=== PATIENT | female | born 1975 | race Caucasian/White ===

== ENCOUNTER 2017-07-30 21:00 | Inpatient (IN) ==
[2017-07-30] MEDS ORDERED: CARBOPROST 250 MCG/ML INJECTION IM PRN (21:06)
[2017-07-30] MEDS ORDERED: ACETAMINOPHEN 500 MG TABLET PO PRN ×2 (21:06→22:39)
[2017-07-30] MEDS ORDERED: MAG-AL + SIM ORAL LIQUID 30ml PO PRN ×2 (21:06→22:39)
[2017-07-30] MEDS ORDERED: LR 1,000 ML IV PRN (21:06)
[2017-07-30] MEDS ORDERED: CALCIUM CARBONATE Chewable 500mg TABLET PO PRN ×2 (21:06→22:39)
[2017-07-30] MEDS ORDERED: METHYLERGONOVINE 0.2 MG/ML INJECTION IM PRN (21:06)
[2017-07-30] MEDS ORDERED: LIDOCAINE 1% (10mg/ml) 2mL INJ PF SDV ID PRN (21:06)
--- OUTSIDE RECORDS SUMMARY | 2017-07-30 21:30 | External Medical Summary | Continuity of Care Document ---
:1975 Author Organization [facility] Address [address] [place], [place] [id number] Phone Care Team Providers Name Role Phone Vandana Cannon DO Unavailable Unavailable Allergies, Adverse Reactions, Alerts Substance Reaction Severity Status No Known Drug Allergies Unknown Active Medications Medication Instructions Dosage Effective Dates Status Comments (start - stop) iron 325 mg (65 mg take 1 tablet by 325 MG - Active iron) tablet ORAL route every day Vitamin take 1 tablet by Not Available - Active tablet oral route every day Problems Condition Effective Dates (start - stop) Clinical Status Supervision of elderly multigravida, - third trimester 30 weeks gestation of - Supervision of elderly multigravida, - third trimester 28 weeks gestation of - Supervision of elderly multigravida, - second trimester 23 weeks gestation of - Supervision of elderly multigravida, - second trimester 20 weeks gestation of - Supervision of elderly multigravida, - second trimester Encntr screen for infections w sexl - mode of transmiss Encounter for screening for oth - infec/parastc diseases Encounter for screening of - mother 14 weeks gestation of - Supervision of elderly multigravida, - second trimester 16 weeks gestation of - Supervision of elderly multigravida, - second trimester 20 weeks gestation of - Supervision of elderly multigravida, - third trimester Velamentous insertion of umbilical - cord, third trimester 32 weeks gestation of - Vaginal Discharge - Active Procedures Procedure Date OB Visit No Charge Results Test Name Date and Time Measure Units Reference Range Abnormal Flag Comments Unknown Advance Directives Directive Yes / No Effective Date File Name Unknown Encounters Encounter Practice Location Reason(s) Diagnoses Date Provider Care Team Description For Visit Members Rizwana Poe Supervision of [place] Referring In Womens elderly 1-201 [place]. 700 Provider: billie Mishraavikadeem, 8 Medical [place] [address] third Center [place] R, 1522, trimesterVelament Partha Beasley, ous insertion of 120, Medical [place], umbilical cord, [facility] [id number], third [email or web address] [place], Partha 120, [place] weeks gestation [id number] Lui, tel: of , [place]. [place], tel: [phone]. [id number] tel:[phone] Rizwana Poe Supervision of [place] Referring In Womens elderly 8-201 [place]. 700 Provider: nancie Mishra, 8 Medical [place] [address] third [email or web address] Center [place] R, 1522, weeks gestation Partha Beasley, of 120, Medical [facility] [id number], [place], Partha 120, [place] [id number] Lui, tel: , [place]. [place], tel: [phone]. [id number] tel:[phone] Rizwana Poe Supervision of [place] Referring In Womens elderly 4-201 [place]. 700 Provider: nancie Mishra, 8 Medical [place] PO [address] third [email or web address] Center [place] R, 1522, weeks gestation Partha Beasley, of 120, Medical [facility] [id number], [place], Partha 120, [place] [id number] Lui, tel: , . [place], tel: [phone]. [id number] tel:[phone] Rizwana Poe Supervision of Dec-0 [place] Referring In Womens elderly 5-201 [place]. 700 Provider: Health MESFIN multigravida, 7 Medical [facility] Box second Center [place] R, 1522, [email or web address] weeks Partha Beasley, gestation of 120, Medical [place], Lui, [place] [id number], [place], Partha 120, [place] [id number] Lui, tel: , [place]. [place], tel: [phone]. [id number] tel:[phone] Rizwana Poe Supervision of Nov-0 [place] Referring In Womens elderly 8-201 [place]. 700 Provider: vicki Mishragravida, 7 Medical [facility] Box second Center [place] R, 1522, [email or web address] weeks Partha Beasley, gestation of 120, Medical [place], Poe, [place] [id number], [place], Partha 120, [place] [id number] Lui, tel: , [place]. [place] tel: [phone]. [id number] tel:[phone] Rizwana Poe Supervision of Nov-0 [place] Referring In Womens Ultrasound elderly 8-201 [place]. 700 Provider: vicki Mishragravida, 7 Medical [facility] Box second Center [place] R, 1522, [email or web address] weeks Partha Beasley, gestation of 120, Medical [place], [facility] [id number], [place], Partha 120, [place] [id number] Lui, tel: , [place]. [place] tel: [phone]. [id number] tel:[phone] Rizwana Poe Supervision of Oct-1 [place] Referring In Womens elderly 7-201 [place]. 700 Provider: vicki Mishragravida, 7 [facility] Box second Center [place] R, 1522, [email or web address] weeks Partha Beasley, gestation of 120, Medical [place], [facility] [id number], [place], Partha 120, [place] [id number] Lui, tel: , [place]. [place] tel: [phone]. [id number] tel:[phone] Rizwana Poe Supervision of Sep-2 [place] Referring In Womens elderly 7-201 [place]. 700 Provider: Health MESFIN, multigravida, 7 Medical [place] PO Box [facility] Center [place] R, 1522, trimesterEncntr , [place] [address] Thierry, screen for 120, Medical [place], infections w sexl Lui, [place] [id number], mode of [place], Partha 120, [place] transmissEncounte [id number] Lui, tel: r for screening , [place]. [place], for oth tel: [phone]. infec/parastc [id number] tel: diseasesEncounter [phone] for screening of [id number] weeks gestation of [facility] May-0 [place] Referring In Womens 2-201 [facility] 700 Provider: Health MESFIN, 4 Medical [place] PO Box Center Kassandra B, 1522, , [facility] Lloyd [place], 120, Medical AMARILYS, Lui, Center [id number], [place], [address], [place] [id number] Lui, tel: , . [place], . tel: tel: [phone] Associates [facility] Mar-3 [place] In Womens 0-201 [place]. 700 Health MESFIN, 0 Medical PO Box Center [address], Dr [facility] Thierry, 120, KSLui, [id number], [place], [place] [id number] tel: , [place]. tel: [phone] Family History Family Member Diagnosis Age At Onset No family history of Osteoporosis No family history of Thyroid Disorder No family history of Ovarian Cancer No family history of Epilepsy No family history of Breast Cancer No family history of Colon Cancer No family history of Diabetes No family history of Hypertension Maternal Grandmother Myocardial Infarction No family history of Stroke Paternal Grandfather Cardiovascular Disease No family history of Kidney Problems Father Cancer, lung Immunizations Vaccine Date Status Comments Unknown Payers Payer name Insurance type Covered constitution party ID Authorization(s) KENNETH MCDONNELL [id number] Social History Type Description Quantity Date Captured Alcohol Use Details No Caffeine Use Details Unknown Tobacco Use Status Unknown Smoking Status Never smoker Vital Signs Date / Height Weight BMI Pulse Blood Temperature Respiratory Body Head BMI Time: Rate Pressure Rate Surface Circumference percentile Area 151.90 23.7 123/ lbs 9 mm[Hg] 9:17 kg/m AM eter (2) Chief Complaint And Reason For Visit Unknown Chief Complaint And Reason For Visit Reason For Referral Reason For Referral Unknown Plan Of Care Date Type Action Status Appointment Sharmaine Medrano BOOKED Future Order: Radiology Order OB Detailed Complete Ultrasound Ordered ([id number]) Date Type Problem Goal Intervention Status Start Date Unknown. History Of Present Illness Encounter Date Complaint History Of Present Illness This patient has no known history of present illness Functional Status Encounter Date Functional Assessment Cognitive Assessment Unknown Medications Administered Medication Instructions Dosage Effective Dates (start - stop) Status Comments Drug Treatment Unknown Instructions Date Instruction Additional Information Unknown
--- OUTSIDE RECORDS SUMMARY | 2017-07-30 21:31 | External Medical Summary | Continuity of Care Document ---
:1975 Author Organization [facility] Address [address] [place], [place] [address] Phone Care Team Providers Name Role Phone Vandana Cannon DO Unavailable Unavailable Allergies, Adverse Reactions, Alerts Substance Reaction Severity Status No Known Drug Allergies Unknown Active Medications Medication Instructions Dosage Effective Dates Status Comments (start - stop) Vitamin take 1 tablet by Not Available - Active tablet oral route every day Problems Condition Effective Dates (start - stop) Clinical Status Supervision of elderly multigravida, - second trimester 16 weeks gestation of - Supervision of elderly multigravida, - second trimester Encntr screen for infections w sexl - mode of transmiss Encounter for screening for oth - infec/parastc diseases Encounter for screening of - mother 14 weeks gestation of - Vaginal Discharge - Active Procedures Procedure Date OB Visit No Charge Results Test Name Date and Time Measure Units Reference Range Abnormal Flag Comments Unknown Advance Directives Directive Yes / No Effective Date File Name Unknown Encounters Encounter Practice Location Reason(s) Diagnoses Date Provider Care Team Description For Visit Members [facility] Supervision of [place] Referring In Women elderly 7-201 [place]. 700 Provider: vicki Mishragravikadeem, 7 Medical [place] PO [address] second [email or web address] Center [place] R, 1522, weeks gestation of Partha Beasley 700 Thierry, 120, Medical [facility] [id number], [place], [facility] 120, [id number] Lui, tel:[phone] , . [place], tel: [phone]. [id number] tel:[phone] Rizwana Poe Supervision of Sep-2 [place] Referring In Womens elderly 7-201 [place]. 700 Provider: Karley TOURE, multigravida, 7 [facility] Box [facility] Center [place] R, 1522, trimesterEncntr , [place] [address] Thierry, screen for 120, Medical [place], infections w sexl Lui Dequincy [id number], mode of [place], Partha 120, [place] transmissEncounter [id number] Lui, tel: for screening for , [place]. [place], oth infec/parastc tel: [phone]. diseasesEncounter [id number] tel: for [phone] screening of [id number] weeks gestation of Rizwana Poe Vinicio-0 [place] Referring In Womens 2-201 [place]. 700 Provider: Karley TOURE, 4 Medical [place] PO Box Center Kassandra Pedersen, 1522, , [place] [address] Thierry, 120, Medical Lui [address] [id number], [place], [address], [id number] Lui, tel: , [place]. [place], . tel: tel: [phone] Rizwana Poe Mar-3 [place] In Womens 0-201 [place]. 700 Karley TOURE, 0 Medical PO Box Center 1522, Partha Beasley, 120, Lui PANDA, [id number], [place], [place] [id number] tel: , . tel: [phone] Family History Family Member Diagnosis Age At [...] Unknown Payers Payer name Insurance type Covered democrat ID Authorization(s) KEYA MCDONNELL [id number] Social History Type Description Quantity Date Captured Alcohol Use Details No Caffeine Use Details Unknown Tobacco Use Status Unknown Smoking Status Never smoker Vital Signs Date / Height Weight BMI Pulse Blood Temperature Respiratory Body Head BMI Time: Rate Pressure Rate Surface Circumference percentile Area 135.40 21.2 112/64 lbs 0 mm[Hg] 10:35 kg/m AM eter (2) Chief Complaint And Reason For Visit Unknown Chief Complaint And Reason For Visit Reason For Referral Reason For Referral Unknown Plan Of Care Date Type Action Status Appointment Sharmaine Medrano BOOKED Appointment Sharmaine Medrano BOOKED Date Type Problem Goal Intervention Status Start [...]
--- OUTSIDE RECORDS SUMMARY | 2017-07-30 21:31 | External Medical Summary | Continuity of Care Document ---
:1975 Author Organization [facility] Address [address] [place], [place] [phone] Phone Care Team Providers Name Role Phone Armandaquiles Vandana MORENO Unavailable Unavailable Allergies, Adverse Reactions, Alerts Substance [...] insertion of umbilical - cord, third trimester Encounter For Screening For - Streptococcus B 36 weeks gestation of - Supervision of elderly [...] Supervision of elderly multigravida, - third trimester 34 weeks gestation of - Supervision of elderly multigravida, - third trimester Velamentous insertion of umbilical - cord, third trimester 32 weeks gestation of - Supervision of elderly multigravida, - third trimester Velamentous insertion of umbilical - cord, third trimester 36 weeks gestation of - Supervision of elderly multigravida, - third trimester Velamentous insertion of umbilical - cord, third trimester 37 weeks gestation of - Supervision of elderly multigravida, - third trimester 30 weeks gestation of - Supervision of elderly multigravida, - third trimester Velamentous insertion of umbilical - cord, third trimester 38 weeks gestation of - Vaginal Discharge - Active Procedures Procedure Date Immuniz admnin, 1 vac, sngl/combo 19 Yrs + TDAP VACCINE >7 IM OB Visit No Charge - SHEAR TENDER Cult, pathgnc orgnsm, screen Results Test Name Date and Time Measure Units Reference Range Abnormal Flag Comments Panel Description: STREPTOCOCCUS, GROUP B CULTURE STREPTOCOCCUS, GROUP SEE NOTE STREPTOCOCCUS, GROUP B CULTURE B CULTURE 11:03:00 MICRO NUMBER: [id number] TEST STATUS: FINAL SPECIMEN SOURCE: VAGINAL/ANORECTAL SPECIMEN QUALITY: ADEQUATE RESULT: No group B Streptococcus isolatedREPORT COMMENT:FASTING:UNKNOWNTest performed at [facility] [id number] AMARILYS SIMON [id number]: EDGAR MONTELONGO DO,MPH Advance Directives Directive Yes / No Effective Date File Name Unknown Encounters Encounter Practice Location Reason(s) Diagnoses Date Provider Care Team Description For Visit Members Rizwana Poe Supervision of Jul- [place] Referring In Womens elderly 5-201 [place]. 700 Provider: Karley TOURE, multigravida, 8 Medical [place] PO Box third Center Solit[place] R, 1522, trimesterVelwicho Beasley, Partha 700 [place], ous insertion of 120, Medical [place], umbilical cord, [address] [id number], third [email or web address] [place], Partha 120, [place] weeks gestation [id number] Lui, tel: of , [place]. [place], tel: [phone]. [id number] tel:[phone] Rizwana Poe Supervision of Jul-0 [place] Referring In Womens elderly 8- [place]. 700 Provider: Karley TOURE multigravida, 8 Medical [facility] Box third Center Solit[place] R, 1522, trimesterVelwicho Beasley, Partha 700 [place], ous insertion of 120, Medical [place], umbilical cord, [address] [id number], third [email or web address] [place], Partha 120, [place] weeks gestation [id number] Lui, tel: of , [place], tel:[phone]. [id number] tel:[phone] Rizwana Poe Supervision of Jun- Solitario Referring In Womens elderly [place]. 700 Provider: vicki Mishragravida, 8 Medical [facility] Box third Center Solit[place] R, 1522, trimesterHerminio Beasley, Partha 700 [place], ous insertion of 120, Medical [place], umbilical cord, [address] [id number], third [place], Partha 120, [place] trimesterEncounte [id number] Lui, tel: r For , [place]. [place], Screening For tel: [phone]. Streptococcus B36 [id number] tel: weeks gestation [phone] of Associates L[facility] Supervision of b-2 [place] Referring In Womens Ultrasound elderly 8 [place]. 700 Provider: vicki Mishragravida, 8 Medical [place] PO Box third Center Solit[place] R, 1522, trimesterHerminio Beasley, Partha 700 [place], ous insertion of 120, Medical [place], umbilical cord, Lui [place] [id number], third [place], Partha 120, [place] weeks gestation [id number] Lui, tel: of , [place]. [place], tel: [phone]. [id number] tel:[phone] Rizwana Poe Supervision of [place]it[place] Referring In Womens elderly 5-201 [place]. 700 Provider: Health PA, multigravida, 8 Medical [place] PO Box third [email or web address] Center [place] R, 1522, weeks gestation Partha Beasley, of 120, Medical [facility] [id number], [place], [place] 120, [place] [id number] Lui, tel: , [place]. [place], tel: [phone]. [id number] tel:[phone] Rizwana Poe Supervision of 0 [place] Referring In Womens elderly 1-201 [place]. 700 Provider: Health MESFIN, multigravida, 8 Medical [place] PO [address] third Center [place] R, [address], [address] Partha Lloyd [place], ous insertion of 120, Medical AMARILYS, [facility] cord, [facility] [id number], third [id number] [place], Partha 120, [place] weeks gestation [id number] Lui, tel: of , [place]. [place], tel: [phone]. [id number] tel:[phone] Rizwana Poe Supervision of [place]it[place] Referring In Womens elderly 8-201 [place]. 700 Provider: Health MESFIN, multigravida, 8 Medical [place] PO Box third [email or web address] Center [place] R, 1522, weeks gestation Partha Beasley, of 120, Medical [facility] [id number], [place], Partha 120, [place] [id number] Lui, tel: , [place]. [place], tel: [phone]. [id number] tel:[phone] Rizwana Poe Supervision of May-0 [place] Referring In Womens elderly 4-201 [place]. 700 Provider: Health PA, multigravida, 8 Medical [place] PO Box third Center [place] R, 1522, weeks gestation Partha Beasley, of 120, Medical [facility] [id number], [place], Partha 120, [place] [id number] Lui, tel: , [place]. [place] tel: [phone]. [id number] tel:[phone] Rizwana Poe Supervision of Dec-0 [place] Referring In Womens elderly 5-201 [place]. 700 Provider: vicki Mishragravikadeem, 7 Medical [facility] Box second Center [place] R, 1522, [email or web address] weeks Partha Beasley, gestation of 120, Medical [place], Lui, [place] [id number], [place], Partha 120, [place] [id number] Lui, tel: , [place]. [place], tel: [phone]. [id number] tel:[phone] Rizwana Poe Supervision of Nov-0 [place] Referring In Womens elderly 8- [place]. 700 Provider: vicki Mishragravikadeem, 7 Medical [facility] Box second Center [place] R, 1522, [id number] weeks Partha Beasley, gestation of 120, Medical [place], Lui, [place] [id number], [place], [place]tha 120, [place] [id number] Lui, tel: , [place]. [place] tel: [phone]. [id number] tel:[phone] Rizwana Poe Supervision of Nov-0 [place] Referring In Womens Ultrasound elderly 8- [place]. 700 Provider: billie Mishraavikadeem, 7 Medical [facility] Box second Center [place] R, 1522, [email or web address] weeks Partha Beasley, gestation of 120, Medical [place], [address] [id number], [place], Partha 120, [place] [id number] Lui, tel: , [place]. [place] tel: [phone]. [id number] tel:[phone] Rizwana Poe Supervision of Oct-1 [place] Referring In Womens elderly 7- [place]. 700 Provider: vicki Mishragravida, 7 Medical [facility] Box second Center [place] R, 1522, [email or web address] weeks Partha Beasley, gestation of 120, Medical [place], [address] Dr [id number], [place], Partha 120, [place] [id number] Lui, tel: , . [place], tel: [phone]. [id number] tel:[phone] Rizwana Poe Supervision of Sep-2 [place] Referring In Womens elderly 7-201 [place]. 700 Provider: Karley TOURE, multigravida, 7 [facility] Box [facility] Center Solitario R, 1522, trimesterEncntr , [place] [address] [place], screen for 120, Medical [place], infections w sexl Lui [place] [id number], mode of [place], Partha 120, [place] transmissEncounte [id number] Lui, tel: r for screening , [place]. [place], for oth tel: [phone]. infec/parastc [id number] tel: diseasesEncounter [phone] for screening of [email or web address] weeks gestation of Rizwana Poe Vinicio-0 [place] Referring In Womens 2-201 [place]. 700 Provider: Karley TOURE, 4 Medical [place] PO Box [place] Kassandra Pedersen 1522, , [place] [address] [place], 120, Medical AMARILYS, [address] Dr [id number], [place], [facility] 210, [id number] Lui, tel: , [place]. [place], . tel: tel: [phone] Rizwana Poe Mar-3 [place] In Womens 0-201 [place]. 700 Health MESFIN, 0 Medical PO Box Center 1522, Partha Beasley, 120, Lui PANDA, [id number], [place], [id number] tel: , . tel: [phone] Family History Family Member Diagnosis Age At [...] Cancer, lung Immunizations Vaccine Date Status Comments Tdap completed Source: New Immunization Record Payers Payer name Insurance type Covered alliance party ID Authorization(s) KENNETH MCDONNELL [id number] [facility] [id number] Social History Type Description Quantity Date Captured Alcohol Use Details No Caffeine Use Details Unknown Tobacco Use Status Unknown Smoking Status Never smoker Vital Signs Date / Height Weight BMI Pulse Blood Temperature Respiratory Body Head BMI Time: Rate Pressure Rate Surface Circumference percentile Area 158.80 24.8 / lbs 7 mm[Hg] 10:32 kg/m AM eter (2) Chief Complaint And Reason For Visit Unknown Chief Complaint And Reason For Visit Reason For Referral Reason For Referral Unknown Plan Of Care Date Type Action Status Appointment Sharmaine Medrano BOOKED Future Order: Radiology Order OB Detailed Complete Ultrasound Ordered ([id number]) Future Order: Radiology Order Ultrasound OB Follow-up ([id number]) Ordered Date Type Problem Goal Intervention Status Start [...]
--- OUTSIDE RECORDS SUMMARY | 2017-07-30 21:31 | External Medical Summary | Continuity of Care Document ---
:1975 Author Organization [facility] Address [address] [place], [place] [address] Phone Care Team Providers Name Role Phone Vandana Cannon DO Unavailable Unavailable Allergies, Adverse Reactions, Alerts Substance Reaction Severity Status No Known Drug Allergies Unknown Active Medications Medication Instructions Dosage Effective Dates Status Comments (start - stop) iron 325 mg (65 take 1 tablet by 325 MG - Active mg iron) tablet ORAL route every day Vitamin take 1 tablet by Not Available - Active tablet oral route every day Zithromax Z-Miguel take 2 tablet by 500 MG - No Longer 250 mg tablet oral route every Active day for 1 day then 1 tablet (250 mg) by oral route once daily for 4 days Problems Condition Effective Dates (start - stop) [...] third trimester 30 weeks gestation of - Vaginal Discharge - Active Procedures Procedure Date Unknown Results Test Name Date and Time Measure Units Reference Range Abnormal Flag Comments Unknown Advance Directives Directive Yes / No Effective Date File Name Unknown Encounters Encounter Practice Location Reason(s) Diagnoses Date Provider Care Team Description For Visit Members Rizwana Poe Supervision of Solit[place] Referring In Womens elderly 1-201 [place]. 700 Provider: nancie Mishra, 8 Medical [place] PO Box third Center Solitario R, 1522, trimesterVelament Partha Beasley ous insertion of 120, Medical [place], [facility] [id number], third [email or web address] [place], [facility] 120, [place] weeks gestation [id number] Lui, tel: of , [place]. [place], tel: [phone]. [id number] tel:[phone] Rizwana Poe Solitario In Womens 9-201 [place]. 700 Karley TOURE, 8 Medical PO [address] Center 1522, Partha Beasley, 120, Lui PAN[place] [id number], [place], [place] [id number] tel: , [place]. tel: [phone] Rizwana Poe Supervision of Solitario Referring In Womens elderly 8-201 [place]. 700 Provider: billie Mishraavikadeem, 8 Medical [place] PO Box third [email or web address] Center Solitario R, 1522, weeks gestation Partha Beasley, of 120, Medical Lui PANDA [place] [id number], [place], [facility] 120, [place] [id number] Lui, tel: , [place], tel: [phone]. [id number] tel:[phone] Rizwana Poe Supervision of Vinicio-0 [place] Referring In Womens elderly 4-201 [place]. 700 Provider: Health MESFIN, multigravida, 8 Medical [place] PO Box third [email or web address] Center Solitario R, 1522, weeks gestation Partha Beasley, of 120, Medical [place], Lui, [place] [id number], [place], Partha 120, [place] [id number] Lui, tel: , [place] tel: [phone]. [id number] tel:[phone] Rizwana Poe Supervision of Dec-0 [place] Referring In Womens elderly 5-201 [place]. 700 Provider: Health MESFIN multigravida, 7 Medical [place] PO Box second Center Solitario R, 1522, [email or web address] weeks Partha Beasley, gestation of 120, Medical [place], Lui, [place] [id number], [place], Partha 120, [place] [id number] Lui, tel: , [place] tel: [phone]. [id number] tel:[phone] Rizwana Poe Supervision of Nov-0 [place] Referring In Womens elderly 8-201 [place]. 700 Provider: vicki Mishragravikadeem, 7 Medical [place] PO Box second Center Solitario R, 1522, [email or web address] weeks Partha Beasley, gestation of 120, Medical [place], Lui, [place] [id number], [place], Partha 120, [place] [id number] Lui, tel: , [place] tel: [phone]. [id number] tel:[phone] Rizwana Poe Supervision of Nov-0 [place] Referring In Womens Ultrasound elderly 8-201 [place]. 700 Provider: vicki Mishragravida, 7 Medical [place] PO Box second Center Solitario R, 1522, [id number] weeks Partha Beasely, gestation of 120, Medical [place], Lui, [place] [id number], [place], Partha 120, [place] [id number] Lui, tel: , [place]. [place] tel: [phone]. [id number] tel:[phone] Rizwana Poe Supervision of Oct-1 [place] Referring In Womens elderly 7-201 [place]. 700 Provider: Health MESFIN, multigravida, 7 Medical [place] PO Box second Center Solitario R, 1522, [id number] weeks Partha Beasley, gestation of 120, Medical [place], Lui, [place] [id number], [place], Partha 120, [place] [id number] Lui, tel: , [place]. [place], tel: [phone]. [id number] tel:[phone] Rizwana Poe Supervision of Sep-2 Solit[place] Referring In Womens elderly 7-201 [place]. 700 Provider: Health MESFIN, multigravida, 7 Medical [place] PO Box second Center Solitario R, 1522, trimesterEncntr , [facility] Lloyd [place]ad[place], screen for 120, Medical [place], infections w sexl Lui, [place] [id number], mode of [place], Partha 120, [place] transmissEncounte [id number] Lui, tel: r for screening , [place]. [place], for oth tel: [phone]. infec/parastc [id number] tel: diseasesEncounter [phone] for screening of weeks gestation of Rizwana Poe Vinicio-0 [place] Referring In Womens 2-201 [place]. 700 Provider: Health MESFIN, 4 Medical [place] PO Box Center Kassandra B, 152Abimael, Partha Beasley, 120, [facility] [id number], [place], [facility] 210, [id number] Lui, tel: , [place]. [place], tel: tel: [phone] Rizwana Poe Mar-3 [place] In Womens 0-201 [place]. 700 Health [place], 0 Medical PO Box Center 152Abimael, Partha Beasley, 120, Lui PANDA [id number], [place], [place] [id number] tel: , . tel: [phone] Family History Family Member Diagnosis Age At [...] name Insurance type Covered democrat ID Authorization(s) KENNETH AMARILYS BL [id number] Social History Type Description Quantity Date Captured Unknown Vital Signs Date / Height Weight BMI Pulse Blood Temperature Respiratory Body Head BMI Time: Rate Pressure Rate Surface Circumference percentile Area Unknown Chief Complaint And Reason For Visit Unknown Chief Complaint And Reason For Visit Reason For Referral Reason For Referral Unknown Plan Of Care Date Type Action Status Appointment Sharmaine Medrano BOOKED Future Order: Radiology Order OB Detailed Complete Ultrasound Ordered ([id number]) Date Type Problem Goal Intervention Status Start [...]
--- OUTSIDE RECORDS SUMMARY | 2017-07-30 21:31 | External Medical Summary | Continuity of Care Document ---
:1975 Author Organization [facility] Address [address] [place], [place] [address] Phone Care Team Providers Name Role Phone Kassandra Vandana Unavailable Unavailable Allergies, Adverse Reactions, Alerts Substance [...] second trimester 16 weeks gestation of - Vaginal Discharge - Active Procedures Procedure Date Detailed Compled OB Ultrasound, Single Fetus Results Test Name Date and Time Measure Units Reference Range Abnormal Flag Comments Unknown Advance Directives Directive Yes / No Effective Date File Name Unknown Encounters Encounter Practice Location Reason(s) Diagnoses Date Provider Care Team Description For Visit Members Associates [facility] Supervision of Solitario Referring In Womens elderly 8-201 [place]. 700 Provider: Health [place], multigravida, 7 Medical [place] PO Box second Center Solitario R, 1522, [email or web address] weeks , Partha [place], gestation of 120, Medical [place], [facility] [id number], [place], Partha 120, [place] [id number] Lui, tel: , [place]. [place], tel: [phone]. [phone] tel:[phone] Rizwana Poe Supervision of Nov-0 [place]it[place] Referring In Womens Ultrasound elderly 8-201 [place]. 700 Provider: Karley TOURE, multigravida, 7 Medical [place] PO Box second Center Solitario R, 1522, [email or web address] weeks Dr Partha lLoyd [place]ad[place], gestation of 120, Medical [place], [facility] [id number], [place], Partha 120, [place] [id number] Lui, tel: , [place]. [place], tel: [phone]. [id number] tel:[phone] Rizwana Poe Supervision of Feb- Solitario Referring In Womens elderly 7-201 [place]. 700 Provider: Karley TOURE, vickigravikadeem, 7 Medical [facility] Box second Center Solitario R, 1522, [id number] Partha Lloyd [place], gestation of 120, Medical [place], [facility] [id number], [place], Partha 120, [place] [id number] Lui, tel: , [place]. [place], tel: [phone]. [id number] tel:[phone] Rizwana Poe Supervision of Sep-2 [place] Referring In Womens elderly 7-201 [place]. 700 Provider: Karley TOURE, multigravida, 7 [facility] PO Box second Center Solitario R, 1522, trimesterEncntr Dr Partha Lloyd [place], screen for 120, Medical [place], infections w sexl Lui [place] [id number], mode of [place], Partha 120, [place] transmissEncounte [id number] Lui, tel: r for screening , [place]. [place] for oth tel: [phone]. infec/parastc [id number] tel: diseasesEncounter [phone] for screening of [id number] weeks gestation of Rizwana Poe Vinicio-0 Solit[place] Referring In Womens 2-201 [facility] 700 Provider: Health MESFIN, 4 Medical [place] PO Box Center Emma Lemus, Partha Beasley, [facility] [id number], [place], [facility] 210, [id number] Lui, tel: , [place]. [place], [phone]. [id number] tel: tel: [phone] Associates L[facility] Mar-3 [place]it[place] In Womens 0-201 [place] [address] Health [place], 0 Medical PO Box Center 1522, Partha Beasley, 120, Lui PAN[place] [id number], [place], [place] [id number] tel: , . tel: [phone] Family History Family Member Diagnosis Age At [...] Insurance type Covered constitution party ID Authorization(s) [facility] [id number] Social History Type Description Quantity Date Captured [...] Radiology Order OB Detailed Complete Ultrasound Ordered ([id number]) Date Type Problem Goal Intervention Status Start [...]
--- OUTSIDE RECORDS SUMMARY | 2017-07-30 21:31 | External Medical Summary | Continuity of Care Document ---
:1975 Author Organization [facility] Address [address] [place], [place] [address] Phone Care Team Providers Name Role Phone Vandana aCnnon DO Unavailable Unavailable Allergies, Adverse Reactions, Alerts [...] second trimester 20 weeks gestation of - Vaginal Discharge - Active Procedures Procedure Date OB Visit No Charge Results Test Name Date and Time Measure Units Reference Range Abnormal Flag Comments Unknown Advance Directives Directive Yes / No Effective Date File Name Unknown Encounters Encounter Practice Location Reason(s) Diagnoses Date Provider Care Team Description For Visit Members Rizwana Poe Supervision of [place] Referring [place] [facility]-201 [place]. 700 Provider: nancie Mishra, 7 [facility] second Center Solit[place] R, 1522, [id number] weeks , Partha 700 [place], gestation of 120, Medical [place], [facility] [id number], [place], Partha 120, [place] [id number] Lui, tel: , [place]. [place], tel: [phone]. [id number] tel:[phone] Rizwana Poe Supervision of Nov0 Solitario Referring In Womens Ultrasound elderly 8-201 [place]. 700 Provider: Karley TOURE, multigravida, 7 [facility] second Center Solit[place] R, 1522, [id number] weeks , Partha 700 [place], gestation of 120, Medical [place], [facility] [id number], [place], Partha 120, [place] [id number] Lui, tel: , [place]. [place], tel: [phone]. [id number] tel:[phone] Rizwana Poe Supervision of Solitario Referring In Womens elderly 7-201 [place]. 700 Provider: Karley TOURE, multigravida, 7 [facility] Solitario R, 1522, [id number] weeks , Partha 700 [place], gestation of 120, Medical [place], [facility] [id number], [place], Partha 120, [place] [id number] Lui, tel: , [place]. [place], tel: [phone]. [id number] tel:[phone] Rizwana Poe Supervision of Sep-2 Solitario Referring In Womens elderly 7-201 [place]. 700 Provider: Karley TOURE, multigravida, 7 [facility] second Center Solitario R, 1522, trimesterEncntr , Partha 700 [place], screen for 120, Medical [place], infections w sexl Lui [place] [id number], mode of [place], Partha 120, [place] transmissEncounte [id number] Lui, tel: r for screening , [place]. [place] for oth tel: [phone]. infec/parastc [id number] tel: diseasesEncounter [phone] for screening of [id number] weeks gestation of Rizwana Poe Vinicio-0 Solitario Referring In Womens 2-201 [place]. 700 Provider: Health MESFIN, 4 Medical [place] PO Box Center Emma Lemus, Partha Beasley, 120, [facility] [place] [id number], [place], [address], [place] [id number] Lui, tel: , [place]. [place], [address]. [id number] tel: tel: [phone] Associates [facility] Mar-3 Solit[place] In Womens 0-201 [place] [address] Health [place], 0 Medical PO Box Center 1522, Partha Beasley, 120, Lui PANDA, [id number], [place], [place] [id number] tel: , . tel: [phone] Family History Family Member Diagnosis Age At [...] Unknown Payers Payer name Insurance type Covered alliance party ID Authorization(s) [facility] [id number] Social History Type Description Quantity Date Captured Alcohol Use Details No Caffeine Use Details Unknown Tobacco Use Status Unknown Smoking Status Never smoker Vital Signs Date / Height Weight BMI Pulse Blood Temperature Respiratory Body Head BMI Time: Rate Pressure Rate Surface Circumference percentile Area 140.70 22.0 124/ lbs 3 mm[Hg] 1:30 kg/m PM eter (2) Chief Complaint And Reason For Visit Unknown Chief Complaint And Reason For Visit Reason For Referral Reason For Referral Unknown Plan Of Care Date Type Action Status Appointment Sharmaine Medrano BOOKED Future Order: Radiology Order OB Detailed Complete Ultrasound Ordered ([id number]) Date Type Problem Goal Intervention Status Start [...]
--- OUTSIDE RECORDS SUMMARY | 2017-07-30 21:31 | External Medical Summary | Continuity of Care Document ---
:1975 Author Organization [facility] Address [address] [place], [place] [id number] Phone Care Team Providers Name Role Phone [...] For Visit Members Rizwana Poe Supervision of Dec-0 Solit[place] Referring In Womens elderly 5-201 [place]. 700 Provider: Health MESFIN, multigravida, 7 Medical [place] PO Box second Center Solitario R, 1522, weeks Partha Beasley, gestation of 120, Medical [place], Lui, [place] [id number], [place], Partha 120, [place] [id number] Lui, tel: , [place]. [place] tel: [phone]. [id number] tel:[phone] Rizwana Poe Supervision of Nov-0 Solit[place] Referring In Womens elderly 8-201 [place]. 700 Provider: Karley TOURE, multigravida, 7 Medical [place] PO Box second Center Solitario R, 1522, weeks Partha Beasley, gestation of 120, Medical [place], Lui, [place] [id number], [place], Partha 120, [place] [id number] Lui, tel: , [place]. [place] tel: [phone]. [id number] tel:[phone] Rizwana Poe Supervision of Nov-0 Solit[place] Referring In Womens Ultrasound elderly 8- [place]. 700 Provider: vicki Mishragravikadeem, 7 Medical [place] PO Box second Center Solitario R, 1522, [id number] weeks Partha Beasley, gestation of 120, Medical [place], [facility] [id number], [place], Partha 120, [place] [id number] Lui, tel: , [place]. [place] tel: [phone]. [id number] tel:[phone] Rizwana Poe Supervision of Oct-1 Solit[place] Referring In Womens elderly 7- [place]. 700 Provider: Karley TOURE, multigravida, 7 [facility] PO Box second Center Solitario R, 1522, [id number] weeks Partha Beasley, gestation of 120, Medical [place], Lui, [place] [id number], [place], Partha 120, [place] [id number] Lui, tel: , [place]. [place] tel: [phone]. [id number] tel:[phone] Rizwana Poe Supervision of Sep-2 Solitario Referring In Womens elderly 7- [facility] 700 Provider: Health MESFIN, multigravida, 7 Medical [place] PO Box [facility] Solitario R, 1522, trimesterEncntr , [facility] Lloyd Guadarr[place], screen for 120, Medical [place], infections w sexl Lui, [place] [id number], mode of [place], Partha 120, [place] transmissEncounte [id number] Lui, tel: r for screening , [place]. [place], for oth tel: [phone]. infec/parastc [id number] tel: diseasesEncounter [phone] for screening of [id number] weeks gestation of Associates [facility] Vinicio-0 Solitario Referring In Womens 2-201 [place] [address] Provider: Karley TOURE, [address] Center Kassandra B, 1522, , [facility] Lloyd Guadarrama, 120, Medical AMARILYS, Lui, Josemanuel Beasley [id number], [place], [address], [id number] Lui, tel: , . [place], . tel: tel: [phone] Associates [facility] Mar-3 Solitario In Womens 0-201 [facility] 700 Karley TOURE, 0 Medical PO Box Center 1522, Partha Beasley, [facility], Lui PANDA, [id number], [place], [place] [id number] tel: , . tel: [phone] Family History Family Member Diagnosis Age At [...] Covered constitution party ID Authorization(s) KENNETH MCDONNELL [id number] Social History Type Description Quantity Date Captured Alcohol Use Details No Caffeine Use Details Unknown Tobacco Use Status Unknown Smoking Status Never smoker Vital Signs Date / Height Weight BMI Pulse Blood Temperature Respiratory Body Head BMI Time: Rate Pressure Rate Surface Circumference percentile Area Dec-05 145.20 22.7 109/58 2017 lbs 4 mm[Hg] 10:32 kg/m AM eter (2) Chief Complaint And Reason For Visit Unknown Chief Complaint And Reason For Visit Reason For Referral Reason For Referral Unknown Plan Of Care Date Type Action Status Appointment Sharmaine Medrano BOOKED Future Order: Radiology Order OB Detailed Complete Ultrasound Ordered ([id number]) Date Type Problem Goal Intervention Status Start [...]
--- OUTSIDE RECORDS SUMMARY | 2017-07-30 21:31 | External Medical Summary | Continuity of Care Document ---
:1975 Author Organization [facility] Address [address] [place], [place] [address] Phone Care Team Providers Name Role Phone aVndana Cannon DO Unavailable Unavailable Allergies, Adverse Reactions, [...] Rizwana Poe Supervision of Solitario Referring In [facility] 8-201 [place]. 700 Provider: nancie Mishra, 7 [facility] second Center Solitario R, 1522, [id number] weeks , Partha 700 [place], gestation of 120, Medical [place], [facility] [id number], [place], Partha 120, [place] [id number] Lui, tel: , [place]. [place], tel: [phone]. [id number] tel:[phone] Rizwana Poe Supervision of Nov0 Solitario Referring In Womens Ultrasound elderly 8-201 [place]. 700 Provider: Karley TOURE, multigravida, 7 [facility] second Center Solitario R, 1522, [id number] weeks , Partha 700 [place], gestation of 120, Medical [place], [facility] [id number], [place], Partha 120, [place] [id number] Lui, tel: , [place]. [place], tel: [phone]. [id number] tel:[phone] Rizwana Poe Supervision of Solitario Referring In Womens elderly 7-201 [place]. 700 Provider: Karley TOURE, multigravida, 7 [facility] Solitario R, 1522, [id number] weeks , Partha 700 [place], gestation of 120, Medical [place], [facility] [id number], [place], Partha 120, [place] [id number] Lui, tel: , [place]. [place], tel: [phone]. [id number] tel:[phone] Rizwana Poe Supervision of Sep-2 Solitario Referring In Womens elderly 7-201 [place]. 700 Provider: Karley TOURE, multigravida, 7 [facility] second Center Solitario R, 1522, trimesterEncntr , Partha 700 [place], screen for 120, Medical [place], infections w sexl Lui [place] [id number], mode of [place], Partha 120, [place] transmissEncounte [id number] Lui, tel: r for screening , [place]. [place] for oth tel: [phone]. infec/parastc [id number] tel: diseasesEncounter [phone] for screening of weeks gestation of Rizwana Poe Vinicio-0 Solitario Referring In Womens 2-201 [place]. 700 Provider: Health MESFIN, 4 Medical [place] [facility] PO Box Center Emma Lemus, Partha Beasley, 120, [facility] [place] [id number], [place], [address], [place] [id number] Lui, tel: , [place]. [place], [address]. [id number] tel: tel: [phone] Associates [facility] Mar-3 Solitario In Womens 0-201 [place] [address] Health [place], 0 Medical PO [address] Center [address], Partha Beasley, 120, Lui PANDA, [id number], [place], [place] [id number] tel: , . tel: [phone] Family History Family Member Diagnosis Age At [...] Insurance type Covered alliance party ID Authorization(s) [facility] [id number] Social History Type Description Quantity Date Captured [...] Radiology Order OB Detailed Complete Ultrasound Ordered ([id number]) Date Type Problem Goal Intervention Status Start [...]
--- OUTSIDE RECORDS SUMMARY | 2017-07-30 21:31 | External Medical Summary | Continuity of Care Document ---
:1975 Author Organization [facility] Address [address] [place], [place] [phone] Phone Care Team Providers Name Role Phone [...] Vaginal Discharge - Active Procedures Procedure Date Infct antign, chlamydia trac, ampl Neisseria Gonorrhoeae, Amplification Initial OB Visit No Charge - [employer] Urine Culture OB Panel With An HIV Venpnctr fngr/heel/ear stick routne Cult, bactr, ident isolate, urine Results Test Name Date and Time Measure Units Reference Range Abnormal Flag Comments Panel Description: OBSTETRIC PANEL WHITE BLOOD CELL 6.6 Thousand/uL 3.8-10.8 N COUNT 15:18:00 RED BLOOD CELL 3.76 Million/uL 3.80-5.10 L COUNT 15:18:00 HEMOGLOBIN 11.6 g/dL 11.7-15.5 L 15:18:00 HEMATOCRIT 33.8 % 35.0-45.0 L 15:18:00 MCV 89.9 fL 80.0-100.0 N 15:18:00 MCH 30.9 pg 27.0-33.0 N 15:18:00 MCHC 34.3 g/dL 32.0-36.0 N 15:18:00 RDW 13.1 % 11.0-15.0 N 15:18:00 PLATELET COUNT 180 Thousand/uL 140-400 N 15:18:00 MPV 10.8 fL 7.5-12.5 N 15:18:00 ABSOLUTE 5016 cells/uL 0581-0267 N NEUTROPHILS 15:18:00 ABSOLUTE 1109 cells/uL 850-3900 N LYMPHOCYTES 15:18:00 ABSOLUTE 376 cells/uL 200-950 N MONOCYTES 15:18:00 ABSOLUTE 59 cells/uL 15-500 N EOSINOPHILS 15:18:00 ABSOLUTE 40 cells/uL 0-200 N BASOPHILS 15:18:00 NEUTROPHILS 76 % N 15:18:00 LYMPHOCYTES 16.8 % N 15:18:00 MONOCYTES 5.7 % N 15:18:00 EOSINOPHILS 0.9 % N 15:18:00 BASOPHILS 0.6 % N 15:18:00 ANTIBODY SCREEN, NO ANTIBODIES N RBC W/REFL ID, 15:18:00 DETECTED Reference range TITER AND AG No antibodies detected This assay is a screening test for the detection of red blood cell antibodies. The test is not to be used for pretransfusion screening or for the medical management of an alloimmunized . ABO GROUP O 15:18:00 RH TYPE RH(D) 15:18:00 POSITIVE RPR (DX) W/REFL NON-REACTIVE NON-REACTIV N TITER AND 15:18:00 E CONFIRMATORY TESTING HEPATITIS B NON-REACTIVE NON-REACTIV N SURFACE ANTIGEN 15:18:00 E RUBELLA ANTIBODY 18.10 index N Index (IGG) 15:18:00 Interpretation ----- <0.90 Not consistent with Immunity 0.90-0.99 Equivocal > or=1.00 Consistent with Immunity The presence of rubella IgG antibody suggests immunization or past or current infection withrubella virus.Test performed at [facility] [id number] [facility] [place] [address]Wqkeowm r: EDGAR MONTELONGO DO,MPH Panel Description: HIV 1/2 ANTIGEN/ANTIBODY,FOURTH GENERATION W/RFL HIV NON-REACTIVE NON-REACTIVE N HIV-1 antigen and HIV-1/HIV- 2 antibodies were AG/AB, 15:18:00 notdetected. There is no laboratory evidence of 4TH GEN HIVinfection. PLEASE NOTE: This information has been disclosed toyou from records whose confidentiality may beprotected by state law. If your state requires suchprotection, then the state law prohibits you frommaking any further disclosure of the informationwithout the specific written consent of the personto whom it pertains, or as otherwise permitted by law.A general authorization for the release of medical orother information is NOT sufficient for this purpose. For additional information please refer tohttp://education.[employer]/faq/BZZ779(This link is being provided for informational/educational purposes only.) The performance of this assay has not been clinicallyvalidated in patients less than 2 years old. REPORT COMMENT:FASTING:NOTest performed at [facility] [id number] [facility] [place] [address]Uqctocwj: EDGAR MONTELONGO DO,MPH Panel Description: Bacteria identified in Urine by Culture CULTURE, URINE, 15:18:00 SEE NOTE CULTURE, URINE, ROUTINE ROUTINE MICRO NUMBER: [id number] TEST STATUS: FINAL SPECIMEN SOURCE: URINE, CLEAN CATCH SPECIMEN QUALITY: ADEQUATE RESULT: Multiple organisms present, each less than 10,000 CFU/mL. These organisms, commonly found on external and internal genitalia, are considered to be colonizers. No further testing performed.REPORT COMMENT:RFASTING:NOTest performed at [facility] [address] [address]Ocayzqrx: EDGAR MONTELONGO DO,MPH Panel Description: CHLAMYDIA/N. GONORRHOEAE RNA, TMA CHLAMYDIA NOT DETECTED NOT DETECTED N TRACHOMATIS RNA, 15:19:00 TMA NEISSERIA NOT DETECTED NOT DETECTED N GONORRHOEAE RNA, 15:19:00 TMA [id number] SEE NOTE This test was 15:19:00 performed using the [employer] COMBO2 Assay([employer] The analytical performance characteristics of this assay, when used to test SurePath specimens havebeen determined by [employer]. REPORT COMMENT:FASTING:UNKNO WNTest performed at [facility] [address] [address]Tqiakaqg: EDGAR MONTELONGO DO,MPH Panel Description: Pap Smear With HPV Reflex If ASCUS Document Pap Smear 14:15:00 See scanned report. Advance Directives Directive Yes / No Effective Date File Name Unknown Encounters Encounter Practice Location Reason(s) Diagnoses Date Provider Care Team Description For Visit Members Rizwana Poe Supervision of Solitario Referring In Women elderly [place]. 700 Provider: vicki Mishragravikadeem, 7 [facility] second [id number] Center Sol[place]ario [place], 1522, weeks gestation of Partha Beasley, 120, Medical Lui [address] [id number], [place], Partha 120, [place] [id number] Lui, tel: , [place]. AMARILYS, [id number] tel: [phone]. [id number] tel:[phone] Rizwana Poe Supervision of Solitario Referring In Women elderly [place]. 700 Provider: Karley TOURE multigravida, 7 [facility] Solitario [place], 1522, trimesterEncntr Partha Beasley, screen for 120, Medical [place], infections w sexl [address] Poe Dr [id number], mode of [place], Partha 120, [place] transmissEncounter [id number] Lui, tel: for screening for , . [place], oth infec/parastc tel: [phone]. diseasesEncounter [id number] tel: for [phone] screening of [id number] weeks gestation of Associates Lui Vinicio-0 Solitario Referring In Womens 2-201 [place]. 700 Provider: [facility], 4 Medical [place] PO Box Center Kassandra Pedersen, Cristal2, Par[place] Beasley, [facility], [facility] [place] [id number], [place], [facility] 210, [id number] Lui, tel: , [facility], [address]. tel: tel: [phone] Associates Lui Mar-3 Solitario In Womens 0-201 [facility] 700 Health [place], 0 Medical PO Box Center 1522, Par[place] Beasley, [facility], Lui PANDA [id number], [place], [id number] tel: , . tel: [phone] Family History Family Member Diagnosis Age At [...] Unknown Payers Payer name Insurance type Covered republican ID Authorization(s) [facility] AMARILYS [id number] Social History Type Description Quantity Date Captured Alcohol Use Details No Caffeine Use Details coffee 2 cups per day Tobacco Use Status Never smoked tobacco Smoking Status Never smoker Non-Smoking Tobacco Use : No Details Available : No Details Available Details Vital Signs Date / Height Weight BMI Pulse Blood Temperature Respiratory Body Head BMI Time: Rate Pressure Rate Surface Circumference percentile Area 131.80 20.6 106/64 -2017 lbs 4 mm[Hg] 3:14 kg/m PM eter (2) Chief Complaint And [...]
--- OUTSIDE RECORDS SUMMARY | 2017-07-30 21:31 | External Medical Summary | Continuity of Care Document ---
:1975 Author Organization [facility] Address [address] [place], [place] [address] Phone Care Team Providers Name Role Phone [...] For Visit Members Rizwana Poe Supervision of May-1 Solitario Referring In Womens elderly 8-201 [place]. 700 Provider: nancie Mishra, 8 Medical Erick PO Box third [id number] Center Solitario R, 1522, weeks gestation Partha Beasley, of 120, Medical [place] [facility] [id number], [place], Partha 120, [place] [id number] Lui, tel: , [place]. [place], tel: [phone]. [id number] tel:[phone] Rizwana Poe Viniico-0 Solitario In Womens 5-201 [place]. 700 Karley TOURE, 8 Medical [address] Center [address], [place] Beasley, 120, [place], Poe, [id number], [place], [place] [id number] tel: , [place]. tel: [phone] Rizwana Poe Supervision of Vinicio-0 Solitario Referring In Womens elderly 4-201 [place]. 700 Provider: nancie Mishra, 8 Medical Erick PO Box third [id number] Center Solitario R, 1522, weeks gestation [place] Beasley, of 120, Medical [facility] [id number], [place], Partha 120, [place] [id number] Lui, tel: , [place]. [place], tel: [phone]. [id number] tel:[phone] Rizwana Poe Supervision of Dec-0 Solitario Referring In Womens elderly 5-201 [place]. 700 Provider: nancie Mishra, 7 Medical Erick PO Box second Center Solitario R, 1522, [id number] weeks [place] Beasley, gestation of 120, Medical [place], [facility] [id number], [place], Partha 120, [place] [id number] Lui, tel: , [place]. [place], tel: [phone]. [id number] tel:[phone] Rizwana Poe Supervision of Nov-0 Solitario Referring In Womens elderly 8-201 [place]. 700 Provider: Karley TOURE, multigravida, 7 Medical [facility] Box second Center Solitario R, 1522, weeks [place] Beasley, gestation of 120, Medical [place], Lui, [place] [id number], [place], Partha 120, [place] [id number] Lui, tel: , [place]. [place], tel: [phone]. [id number] tel:[phone] Rizwana Poe Supervision of Nov-0 Solitario Referring In Womens Ultrasound elderly 8-201 [place]. 700 Provider: vicki Mishragravikadeem, 7 [facility] Box banner Center Solitario R, 1522, [id number] weeks [place] Beasley, gestation of 120, Medical [place], Lui, [place] [id number], [place], Partha 120, [place] [id number] Lui, tel: , [place]. [place] tel: [phone]. [id number] tel:[phone] Rizwana Poe Supervision of Oct-1 Solitario Referring In Womens elderly 7-201 [place]. 700 Provider: Karley TOURE, billieavikadeem, 7 [facility] Box banner Center Solitario R, 1522, [id number] weeks [place] Beasley, gestation of 120, Medical [place], Lui, [place] [id number], [place], Partha 120, [place] [id number] Lui, tel: , [place]. [place] tel: [phone]. [id number] tel:[phone] Rizwana Poe Supervision of Sep-2 Solitario Referring In Womens elderly 7-201 [place]. 700 Provider: Karley TOURE, vickigravida, 7 [facility] Solitario R, 1522, trimesterEncntr [place] Beasley, screen for 120, Medical [place], infections w sexl Lui, Josemanuel Beasley [id number], mode of [place], Partha 120, [place] transmissEncounte [id number] Lui, tel: r for screening , [place]. [place] for oth tel: [phone]. infec/parastc [id number] tel: diseasesEncounter [phone] for screening of [id number] weeks gestation of Associates Lui Vinicio-0 Solitario Referring In Womens 2-201 [place]. 700 Provider: Health MESFIN, 4 Medical Vandana PO Box Center Kassandra Pedersen, Emma, Partha Beasley, 120, [facility], [facility] [id number], [place], [address], [id number] Poe, tel: , . [place], [address]. [address] tel: tel: [phone] Associates Lui Mar-3 Solitario In Womens 0-201 [facility] 700 Health MESFIN, 0 Medical PO Box Center 1522, Partha Beasley, [facility], Lui PANDA [id number], [place], [place] [id number] tel: , . tel: [phone] Family History Family Member Diagnosis Age At [...] name Insurance type Covered republican ID Authorization(s) [facility] [place] [id number] Social History Type Description Quantity Date Captured Unknown Vital Signs Date / Height Weight BMI Pulse Blood Temperature Respiratory Body Head BMI Time: Rate Pressure Rate Surface Circumference percentile Area Unknown Chief Complaint And Reason For Visit Unknown Chief Complaint And Reason For Visit Reason For Referral Reason For Referral Unknown Plan Of Care Date Type Action Status Appointment Sharmaine Merdano BOOKED Future Order: Radiology Order OB Detailed Complete Ultrasound Ordered ([id number]) Date Type Problem Goal Intervention Status Start [...]
--- OUTSIDE RECORDS SUMMARY | 2017-07-30 21:31 | External Medical Summary | Continuity of Care Document ---
:1975 Author Organization [facility] Address [address] [place], [place] [phone] Phone Care Team Providers Name Role Phone [...] Procedures Procedure Date OB Visit No Charge Glucose test Hemoglobin count, colorimetric Hematocrit blood count Venpnctr fngr/heel/ear stick routne Results Test Name Date and Time Measure Units Reference Range Abnormal Flag Comments Panel Description: Glucose [Mass/volume] in Serum or Plasma --1 hour post 50 g glucose PO GLUCOSE, 118 mg/dL <140 N Test performed at [employer] GESTATIONAL SCREEN 11:10:00 DIAGNOSTICS [id number] ([id number] [place] [address]Cvdzhbea: EDGAR MONTELONGO DO,MPH Panel Description: HEMOGLOBIN + HEMATOCRIT HEMOGLOBIN 11:10:00 10.2 g/dL 11.7-15.5 L HEMATOCRIT 11:10:00 31.7 % 35.0-45.0 L REPORT COMMENT:FASTING :NOTest performed at [facility] [id number] [place] [address]Qgaodcqd: EDGAR MONTELONGO DO,MPH Advance Directives Directive Yes / No Effective Date File Name Unknown Encounters Encounter Practice Location Reason(s) Diagnoses Date Provider Care Team Description For Visit Members Rizwana Poe Supervision of Solitario Referring In Womens elderly 8-201 [place]. [facility] Provider: Health MESFIN multigravida, 8 Medical [facility] Box third [id number] Hollis Solitario [place], 1522, weeks gestation Partha Beasley, of 120, Medical L[facility] [id number], [place], [facility] 120, [place] [id number] Lui, tel: , . [place], [address] tel: [phone]. [id number] tel:[phone] Rizwana Poe Supervision of Solitario Referring In Womens elderly 4-201 [place]. [facility] Provider: Health MESFIN, multigravida, 8 Medical Erick PO Box third [email or web address] Center Solit[place], 1522, weeks gestation Partha Beasley, of 120, Medical L[facility] [id number], [place], Partha 120, [place] [id number] Lui, tel: , [place]. [place] tel: [phone]. [id number] tel:[phone] Rizwana Poe Supervision of Dec-0 Solitario Referring In Womens elderly 5- [place]. 700 Provider: vicki Mishragravikadeem, 7 [facility] second Center Solitario R, 1522, [id number] weeks Partha Beasley, gestation of 120, Medical [place], Lui Hollis [id number], [place], Partha 120, [place] [id number] Lui, tel: , [place]. [place], tel: [phone]. [id number] tel:[phone] Rizwana Poe Supervision of Nov-0 Solitario Referring In Womens elderly 8- [place]. 700 Provider: billie Mishraavikadeem, 7 [facility] second Center Solitario R, 1522, weeks [place] Beasley, gestation of 120, Medical [place], Lui Hollis [id number], [place], Partha 120, [place] [id number] Lui, tel: , [place]. [place] tel: [phone]. [id number] tel:[phone] Rizwana Poe Supervision of Nov-0 Solitario Referring In Womens Ultrasound elderly [place]. 700 Provider: billie Mishraavikadeem, 7 [facility] second Center Solitario R, 1522, [id number] weeks [place] Beasley, gestation of 120, Medical [place], [address] [id number], [place], Partha 120, [place] [id number] Lui, tel: , [place]. [place], tel: [phone]. [id number] tel:[phone] Rizwana Poe Supervision of Oct-1 Solitario Referring In Womens elderly - [place]. 700 Provider: vicki Mishragravida, 7 [facility] Center Solitario R, 1522, [email or web address] weeks [place] Beasley, gestation of 120, Medical [place], [address]oe Dr [id number], [place], Partha 120, [place] [id number] Lui, tel: , [place]. [place], tel: [phone]. [id number] tel:[phone] Rizwana Poe Supervision of Sep-2 Solitario Referring In Womens elderly 7-201 [place]. 700 Provider: Karley TOURE, multigravida, 7 [facility] Box banner [facility] Center Solitario [place], 1522, trimesterEncntr , [place] [address] Thierry, screen for 120, Medical [place], infections [facility]l [facility] [id number], mode of [place], Partha 120, [place] transmissEncounte [id number] Lui, tel: r for screening , [place]. [place], for oth tel: [phone]. infec/parastc [id number] tel: diseasesEncounter [phone] for screening of [id number] weeks gestation of Rizwana Poe May- Solitario Referring In Womens 2-201 [place]. 700 Provider: Karley TOURE, 4 [facility] Box Hollis Kassandra Pedersen, 1522, Dr [place] [address] Thierry, 120, Medical Lui [address] [id number], [place], [address], [id number] Lui, tel: , [place]. [place], . tel: tel: [phone] Rizwana Poe Mar-3 Solitario In Womens 0-201 [place]. 700 Karley TOURE, 0 Medical PO Box Center 1522, Partha Beasley, [facility], Lui PANDA, [id number], [place], [place] [id number] tel: , . tel: [phone] Family History Family Member Diagnosis Age At [...] Unknown Payers Payer name Insurance type Covered libertarian ID Authorization(s) [facility] [id number] Social History Type Description Quantity Date Captured Alcohol Use Details No Caffeine Use Details Unknown Tobacco Use Status Unknown Smoking Status Never smoker Vital Signs Date / Height Weight BMI Pulse Blood Temperature Respiratory Body Head BMI Time: Rate Pressure Rate Surface Circumference percentile Area 150.10 23.5 108/59 2018 lbs 1 mm[Hg] 10:15 kg/m AM eter (2) Chief Complaint And Reason For Visit Unknown Chief Complaint And Reason For Visit Reason For Referral Reason For Referral Unknown Plan Of Care Date Type Action Status Appointment Sharmaine Medrano BOOKED Future Order: Radiology Order OB Detailed Complete Ultrasound Ordered ([id number]) Date Type Problem Goal Intervention Status Start [...]
--- OUTSIDE RECORDS SUMMARY | 2017-07-30 21:32 | External Medical Summary | Continuity of Care Document ---
:1975 Author Organization [facility] Address [address] [place], [place] [phone] Phone Care Team Providers Name Role Phone [...] For Visit Members Associates Lui Supervision of b-2 Solitario Referring In Womens elderly [place]. 700 Provider: nancie Mishra Medical Erick PO Box [facility] Solitario R, 1522, trimesterVelament Dr Partha 700 [place], ous insertion of 120, Medical [place], umbilical cord, Jose[address] Dr [id number], third AMARILYS, Partha 120, [place] trimesterEncounte [id number] Lui, tel: r For , [place]. [place], [address] Screening For tel: [phone]. Streptococcus [id number] [id number] tel:316 weeks gestation [phone] of Associates Lui Supervision of b-2 Solitario Referring In Womens Ultrasound elderly [place]. 700 Provider: nancie Mishra, 8 Medical Erick PO Box third Center Solitario R, 1522, trimesterVelament , Partha 700 [place], ous insertion of 120, Medical [place], umbilical cord, Josemanuel Poe Dr [id number], third [email or web address] [place], Partha 120, [place] weeks gestation [id number] Lui, tel: of , [place]. [place] tel: [phone]. [id number] tel:[phone] Rizwana Poe Supervision of Jun- Solitario Referring In Womens elderly 5-201 [place]. 700 Provider: Health PA, multigravida, 8 Medical Erick PO Box third Center Solitario R, 1522, weeks gestation Partha Beasley, of 120, Medical [facility] [id number], [place], Partha 120, [place] [id number] Lui, tel: , [place]. [place], tel: [phone]. [id number] tel:[phone] Rizwana Poe Supervision of Jun-0 Solitario Referring In Womens elderly 1-201 [place]. 700 Provider: Health MESFIN, multigravida, 8 Medical Erick PO Box third Center Solitario R, 1522, trimesterVelament Partha Beasley, ous insertion of 120, Medical AMARILYS, umbilical cord, [facility] [id number], third [email or web address] [place], Partha 120, [place] weeks gestation [id number] Lui, tel: of , [place]. [place], tel: [phone]. [id number] tel:[phone] Rizwana Poe Supervision of Solitario Referring In Womens elderly 8-201 [place]. 700 Provider: vicki Mishragravida, 8 Medical Erick PO Box third Center Solitario R, 1522, weeks gestation Partha Beasley, of 120, Medical Lui PANDA [place] [id number], [place], Partha 120, [place] [id number] Lui, tel: , [place]. [place] tel: [phone]. [id number] tel:[phone] Rizwana Poe Supervision of May-0 Solitario Referring In Womens elderly 4-201 [place]. 700 Provider: Health MESFIN, multigravida, 8 Medical Erick PO Box third [id number] Center Solitario R, 1522, weeks gestation Partha Beasley, of 120, Medical Lui PANDA, [place] [id number], [place], Partha 120, [place] [id number] Lui, tel: , [place]. [place] tel: [phone]. [id number] tel:[phone] Rizwana Poe Supervision of Dec-0 Solitario Referring In Womens elderly 5- [place]. 700 Provider: vicki Mishragravikadeem, 7 [facility] Solitario R, 1522, [id number] weeks Partha Beasley, gestation of 120, Medical [place], Lui, [place] [id number], [place], Partha 120, [place] [id number] Lui, tel: , [place]. [place] tel: [phone]. [id number] tel:[phone] Rizwana Poe Supervision of Nov-0 Solitario Referring In Womens elderly 8- [place]. 700 Provider: nancie Mishra, 7 [facility] Solitario R, 1522, [id number] weeks [place] Beasley, gestation of 120, Medical [place], [facility] , [place], Partha 120, [place] [id number] Lui, tel: , [place]. [place] tel: [phone]. [id number] tel:[phone] Rizwana Poe Supervision of Nov-0 Solitario Referring In Womens Ultrasound elderly 8 [place]. 700 Provider: billie Mishraavikadeem, 7 [facility] second Center Solitario R, 1522, [id number] weeks [place] Beasley, gestation of 120, Medical [place], [facility] [id number], [place], Partha 120, [place] [id number] Lui, tel: , [place]. [place] tel: [phone]. [id number] tel:[phone] Rizwana Poe Supervision of Oct-1 Solitario Referring In Womens elderly - [place]. 700 Provider: vicki Mishragravikadeem, 7 [facility] Solitario R, 1522, [id number] weeks [place] Beasley, gestation of 120, Medical [place], Lui, Josemanuel Beasley [id number], [place], Partha 120, [place] [id number] Lui, tel: , [place]. [place], tel: [phone]. [id number] tel:[phone] Rizwana Poe Supervision of Sep-2 Solitario Referring In Womens elderly 7-201 [place]. 700 Provider: Karley TOURE, multigravida, 7 Medical [facility] Box [facility] Center Solitario R, 1522, trimesterEncntr , [address], screen for 120, Medical [place], infections w sexl Lui, [place] [id number], mode of [place], Partha 120, [place] transmissEncounte [id number] Lui, tel: r for screening , [place]. [place], for oth tel: [phone]. infec/parastc [id number] tel: diseasesEncounter [phone] for screening of weeks gestation of Rizwana Poe Vinicio-0 Solitario Referring In Womens 2-201 [place]. 700 Provider: Karley TOURE, 4 [facility] [address] Box [place] Kassandra Pedersen, 1522, , [place] [address] [place], 120, [facility], Lui [place] [id number], [place], [facility] 210, [id number] Lui, tel: , . [place], [address]. tel: tel: [phone] Rizwana Poe Mar-3 Solitario In Womens 0-201 [place]. 700 Health MESFIN, 0 Medical PO Box Center 1522, Dr [place]tha [place], [facility], Lui PANDA, [id number], [place], [id number] tel: , . tel: [phone] Family History Family Member Diagnosis Age At [...] Record Payers Payer name Insurance type Covered democrat ID Authorization(s) [facility] [id number] [facility] [id number] Social History Type Description Quantity Date Captured Alcohol Use Details No Caffeine Use Details Unknown Tobacco Use Status Unknown Smoking Status Never smoker Vital Signs Date / Height Weight BMI Pulse Blood Temperature Respiratory Body Head BMI Time: Rate Pressure Rate Surface Circumference percentile Area 156.70 24.5 lbs 4 mm[Hg] 10:12 kg/m AM eter (2) Chief Complaint And Reason For Visit Unknown Chief Complaint And Reason For Visit Reason For Referral Reason For Referral Unknown Plan Of Care Date Type Action Status Appointment Sharmaine Medrano BOOKED Future Order: Radiology Order OB Detailed Complete Ultrasound Ordered ([id number]) Future Order: Radiology Order Ultrasound OB Follow-up ([id number]) Ordered Date Type Problem Goal Intervention Status [...]
--- NOTE | 2017-07-30 22:38 | OB/GYN Procedure Note ---
Delivery date: 07/30/17 Intrapartal events: Precipitous Labor < 3 hours Induction method: none Delivery monitor: external FHT, external uterine Route of delivery: Laceration description: Perineal - 1st Degree Estimated blood loss (mL): 100 Anesthesia type: None Disposition: floor - [place] Baby 1 Infant gender: Female presentation: Vertex position: Vertex-by exam Placenta delivery description: Spontaneous cord vessel description: 3 Vessels at 1 minute: 8 at 5 minutes: 9
[2017-07-30] MEDS ORDERED: HYDROCORTISONE 2.5% CREAM 30gm RECTALLY PRN (22:39)
[2017-07-30] MEDS ORDERED: HYDROCODONE/APAP 5mg/325mg TABLET PO PRN (22:39)
[2017-07-30] MEDS ORDERED: OXYTOCIN DRIP 30 UNIT/500 ML ML IV PRN (22:39)
[2017-07-30] MEDS ORDERED: IBUPROFEN 800 MG TABLET PO PRN (22:39)
[2017-07-30] MEDS ORDERED: DiphenhydrAMINE 25 MG CAPSULE PO PRN (22:39)
[2017-07-30] MEDS ORDERED: OXYTOCIN DRIP 30 UNIT/500 ML ML IV SCH (22:45)
[2017-07-31 01:50] VITALS: BMI 24.9
--- NOTE | 2017-07-31 08:20 | Progress Note ---
OB PP Progress Note Free Text - Date Date: 07/31/17 - Progress Note Progress Note: vss af no c/o doing well q&a-krb
[2017-07-31] MEDS ORDERED: DOCUSATE CALCIUM 240 MG CAPSULE PO SCH (09:00)
--- NOTE | 2017-07-31 09:08 | Labor and Delivery Note ---
DATE OF DELIVERY: 07/30/2017 DELIVERY NOTE This is a that presented to Labor & Delivery in spontaneous labor and was noted to be complete and +3 station on initial exam. She received an IV and blood was drawn and then she delivered a viable female infant in cephalic presentation over intact perineum without anesthesia. Weight was 3470 grams with Apgars of 8/9/9. She had a small first-degree perineal that was hemostatic and not repaired. There was spontaneous delivery of the placenta. Estimated blood loss was 100 ml and there was no complication. Mother and baby were doing well after delivery in the recovery room. AMAYA
[2017-07-31 19:11] VITALS: BP 119/61; PULSE 74; RESP 18; TEMP 98; O2SAT 97
== END 2017-07-31 22:30 | disposition home or self-care (01) | DRG 775 ==
LOC: MC 21:00
PROVIDERS: ADMIT Obstetrics & Gynecology; ATTEND Obstetrics & Gynecology